=== PATIENT | female | born 1985 | race Caucasian/White ===

== ENCOUNTER 2018-04-30 09:09 | Outpatient (CLI) | payer OTHER, MEDICAID ==
[2018-04-30 10:10] LABS: ADD MAN DIFF? NO
[2018-04-30 10:12] LABS: BASOPHILS % 0.3 % (0.0-2.0); EOSINOPHILS % 0.5 % (0.0-7.0); HEMATOCRIT 34.1 % (37.0-47.0); HEMOGLOBIN 11.2 g/dl (12.0-16.0); LYMPHOCYTES % 17.3 % (15.0-51.0); MEAN CORPUSCULAR HEMOGLOBIN 33.9 pg (29.0-33.0); MEAN CORPUSCULAR HGB CONC 32.8 g/dl (32.0-37.0); MEAN CORPUSCULAR VOLUME 103.3 fl (82.0-101.0); MEAN PLATELET VOLUME 9.4 fl (7.4-10.4); MONOCYTE # 0.4 10^3/ul (0.3-0.9); MONOCYTES % 7.2 % (0.0-11.0); NEUTROPHIL # 4.4 10^3/ul (1.6-7.5); PLATELET COUNT 210 10^3/UL (140-415); RED CELL DISTRIBUTION WIDTH 13.2 % (11.5-14.5)
[2018-04-30 10:51] LABS: ADD UMIC YES; UR ASCORBIC ACID NEGATIVE (NEGATIVE); UR BACTERIA FEW /HPF (NONE SEEN); UR BILIRUBIN (Dip) NEGATIVE (NEGATIVE); UR BLOOD (Dip) NEGATIVE (NEGATIVE); UR CLARITY SLIGHTLY CLOUDY (CLEAR); UR COLOR YELLOW (YELLOW); UR GLUCOSE (Dip) NEGATIVE (NEGATIVE); UR KETONES (Dip) NEGATIVE (NEGATIVE); UR LEUKOCYTE ESTERASE (Dip) 2+ Leu/ul (NEGATIVE); UR NITRITE (Dip) NEGATIVE (NEGATIVE); UR RBC 1 /HPF (0-5); UR SPECIFIC GRAVITY (Dip) 1.008 (1.003-1.030); UR SQUAMOUS EPITHELIAL CELL FEW /HPF (FEW); UR TOTAL PROTEIN (Dip) NEGATIVE (NEGATIVE); UR UROBILINOGEN (Dip) NEGATIVE (NEGATIVE); UR WBC 7 /HPF (0-5)
[2018-04-30 11:22] LABS: ALANINE AMINOTRANSFERASE 16 IU/L (13-69); ALBUMIN 3.3 g/dl (3.3-4.9); ALBUMIN/GLOBULIN RATIO 1.13; ALKALINE PHOSPHATASE 72 IU/L (42-121); ANION GAP 6 (5-13); ASPARTATE AMINO TRANSFERASE 24 IU/L (15-46); BILIRUBIN,INDIRECT 0.3 mg/dl (0-1.1); BILIRUBIN,TOTAL 0.3 mg/dl (0.2-1.3); BLOOD UREA NITROGEN 8 mg/dl (7-20); CALCIUM 8.8 mg/dl (8.4-10.2); CARBON DIOXIDE 24 mmol/L (21-31); CHLORIDE 108 mmol/L (97-110); CREATININE 0.43 mg/dl (0.44-1.00); Estimated GFR > 60 mL/min (>60); GLUCOSE 86 mg/dl (70-220); POTASSIUM 4.1 mmol/L (3.5-5.1); SODIUM 138 mmol/L (135-144); TOTAL PROTEIN 6.2 g/dl (6.1-8.1)
[2018-04-30 11:24] LABS: URIC ACID 3.1 mg/dl (3.1-7.9)
== END 2018-04-30 12:51 | disposition home or self-care (01) ==
LOC: OBT 09:09 → L-D 09:09 → OBT 12:51
DX: O26.892 Other specified pregnancy related conditions, second trimester (principal); Z3A.28 28 weeks gestation of pregnancy; R42 Dizziness and giddiness; H53.8 Other visual disturbances
CPT/HCPCS: 76815; 76818; 80053; 81001; 84560; 85025

== ENCOUNTER 2018-04-30 13:00 | Emergency (ER) | payer SELFPAY, OTHER | END 2018-04-30 20:41 | disposition left against medical advice (07) | LOC: E/R 13:00 | DX: Z53.21 Procedure and treatment not carried out due to patient leaving prior to being seen by health care provider (principal) ==

== ENCOUNTER 2018-06-17 14:15 | Inpatient (IN) | payer OTHER ==
[2018-06-17] MEDS: CEFTRIAXONE 1 GM/50 ML (PMX) 50 ML IVPB (17:52)
[2018-06-17] MEDS: SOD CHLORIDE 0.9% 1,000 ML IV (17:52)
[2018-06-17] MEDS: FERROUS SULFATE (EC) 325 MG TAB PO (21:49)
[2018-06-17] MEDS: PRENATAL VITAMIN PO (21:49)
[2018-06-18] MEDS: FERROUS SULFATE (EC) 325 MG TAB PO ×3 (09:35→21:30)
[2018-06-18] MEDS: SOD CHLORIDE 0.9% 1,000 ML IV (13:13)
[2018-06-18] MEDS: CEFTRIAXONE 1 GM/50 ML (PMX) 50 ML IVPB (18:12)
[2018-06-18] MEDS: PRENATAL VITAMIN PO (21:30)
[2018-06-19] MEDS: SOD CHLORIDE 0.9% 1,000 ML IV (06:11)
[2018-06-19] MEDS: FERROUS SULFATE (EC) 325 MG TAB PO (10:15)
[2018-06-19] MEDS: PRENATAL VITAMIN PO (10:15)
[2018-06-19] MEDS: CEFTRIAXONE 1 GM/50 ML (PMX) 50 ML IVPB (14:47)
== END 2018-06-19 17:30 | disposition home or self-care (01) | DRG 833 ==
LOC: OBT 14:15 → PP1 14:16 → OBT 14:17 → PP1 14:17
DX: O23.03 Infections of kidney in pregnancy, third trimester (principal); Z3A.35 35 weeks gestation of pregnancy
CPT/HCPCS: 76775; 76815; 87086

== ENCOUNTER 2018-07-24 15:59 | Inpatient (IN) | payer OTHER ==
[2018-07-24] MEDS ORDERED: AMPICILLIN 2 GM/NS (PMX) 100 ML IV (16:30)
[2018-07-24] MEDS ORDERED: METHYLERGONOVINE 0.2 MG INJ IM (16:30)
[2018-07-24] MEDS ORDERED: CARBOPROST 250 MCG INJ IM (16:30)
[2018-07-24] MEDS ORDERED: MISOPROSTOL 200 MCG TAB PR (16:30)
[2018-07-24] MEDS ORDERED: OXYTOCIN 30 UNITS/LR 500 ML IV (16:30)
[2018-07-24 16:57] LABS: ADD MAN DIFF? NO
[2018-07-24 17:01] LABS: BASOPHILS % 0.3 % (0.0-2.0); EOSINOPHILS # 0.1 10^3/ul (0.0-0.5); EOSINOPHILS % 0.8 % (0.0-7.0); HEMATOCRIT 37.1 % (37.0-47.0); HEMOGLOBIN 12.5 g/dl (12.0-16.0); LYMPHOCYTES % 17.4 % (15.0-51.0); MEAN CORPUSCULAR HEMOGLOBIN 34.4 pg (29.0-33.0); MEAN CORPUSCULAR HGB CONC 33.7 g/dl (32.0-37.0); MEAN CORPUSCULAR VOLUME 102.2 fl (82.0-101.0); MEAN PLATELET VOLUME 10.3 fl (7.4-10.4); MONOCYTE # 0.5 10^3/ul (0.3-0.9); MONOCYTES % 7.7 % (0.0-11.0); NEUTROPHIL # 4.4 10^3/ul (1.6-7.5); NEUTROPHILS % 73.3 % (39.0-77.0); PLATELET COUNT 236 10^3/UL (140-415); RED BLOOD COUNT 3.63 10^6/ul (4.20-5.40); RED CELL DISTRIBUTION WIDTH 13.3 % (11.5-14.5)
[2018-07-24 17:21] LABS: PARTIAL THROMBOPLASTIN TIME 26.9 Sec (23.0-35.0); PROTIME 11.2 Sec (11.9-14.9); PT RATIO 0.9
[2018-07-24] MEDS: LACTATED RINGER'S 1,000 ML IV ×2 (17:48→22:01)
[2018-07-24] MEDS ORDERED: AMPICILLIN 1 GM/NS (PMX) 50 ML IV (20:30)
[2018-07-25] MEDS: LACTATED RINGER'S 1,000 ML IV ×2 (06:07→13:59)
[2018-07-25] MEDS: OXYTOCIN 30 UNITS/LR 500 ML IV ×3 (13:06→15:48)
[2018-07-25] MEDS ORDERED: BUTORPHANOL 2 MG INJ (14:55)
[2018-07-25] MEDS: BUTORPHANOL 2 MG INJ IV (15:16)
[2018-07-25] MEDS: LIDOCAINE 1% (MPF) 30 ML INJ INJ (15:49)
[2018-07-25] MEDS: LACTATED RINGER'S 1,000 ML IV* (17:43)
[2018-07-25] MEDS ORDERED: CARBOPROST 250 MCG INJ IM (18:00)
[2018-07-25] MEDS ORDERED: MISOPROSTOL 200 MCG TAB PR (18:00)
[2018-07-25] MEDS ORDERED: DIBUCAINE 1% 30 GM OINT TOP (18:00)
[2018-07-25] MEDS ORDERED: ACETAMINOPHEN 325 MG TAB PO (18:00)
[2018-07-25] MEDS ORDERED: METHYLERGONOVINE 0.2 MG INJ IM (18:00)
[2018-07-25] MEDS ORDERED: HYDROCODONE/APAP (5/325) TAB PO (18:00)
[2018-07-25] MEDS ORDERED: OXYTOCIN 30 UNITS/LR 500 ML IV (18:00)
[2018-07-25] MEDS: WITCH HAZEL/GLYCERIN PAD PR (18:25)
[2018-07-25] MEDS: BENZOCAINE 20% 56 ML SPRAY TOP (18:26)
[2018-07-25] MEDS: IBUPROFEN 600 MG TAB PO ×2 (18:27→23:22)
[2018-07-25 21:20] LABS: RAPID PLASMA REAGIN NONREACTIVE (NR)
[2018-07-25] MEDS: SENNA/DOCUSATE NA (8.6MG/50MG) TAB PO (22:29)
[2018-07-26] MEDS: LACTATED RINGER'S 1,000 ML IV* ×2 (01:43→09:43)
[2018-07-26] MEDS: IBUPROFEN 600 MG TAB PO ×4 (06:10→23:02)
[2018-07-26 06:44] LABS: ADD MAN DIFF? NO
[2018-07-26 06:47] LABS: BASOPHILS % 0.1 % (0.0-2.0); EOSINOPHILS # 0.1 10^3/ul (0.0-0.5); HEMATOCRIT 34.6 % (37.0-47.0); HEMOGLOBIN 11.5 g/dl (12.0-16.0); LYMPHOCYTES % 12.6 % (15.0-51.0); MEAN CORPUSCULAR HEMOGLOBIN 33.8 pg (29.0-33.0); MEAN CORPUSCULAR HGB CONC 33.2 g/dl (32.0-37.0); MEAN CORPUSCULAR VOLUME 101.8 fl (82.0-101.0); MEAN PLATELET VOLUME 10.2 fl (7.4-10.4); MONOCYTE # 0.5 10^3/ul (0.3-0.9); MONOCYTES % 6.3 % (0.0-11.0); NEUTROPHIL # 6.6 10^3/ul (1.6-7.5); NEUTROPHILS % 79.5 % (39.0-77.0); PLATELET COUNT 202 10^3/UL (140-415); RED CELL DISTRIBUTION WIDTH 13.3 % (11.5-14.5)
[2018-07-26 06:47] LABS: WHITE BLOOD COUNT 8.3 10^3/ul (4.8-10.8)
[2018-07-26] MEDS: SENNA/DOCUSATE NA (8.6MG/50MG) TAB PO ×2 (09:00→20:10)
[2018-07-26] MEDS: WITCH HAZEL/GLYCERIN PAD PR (20:10)
[2018-07-26] MEDS: BENZOCAINE 20% 56 ML SPRAY TOP (20:10)
[2018-07-27] MEDS: IBUPROFEN 600 MG TAB PO ×2 (05:44→13:37)
[2018-07-27] MEDS: SENNA/DOCUSATE NA (8.6MG/50MG) TAB PO (08:52)
[2018-07-27] MEDS: DIPHTH/TET/ACEL PERTUSS (ADULT) 0.5 ML VIAL IM* (14:33)
== END 2018-07-27 15:05 | disposition home or self-care (01) | DRG 807 ==
LOC: OBT 15:59 → PP1 07-25 17:10 → L-D 16:00 → OBT 16:25 → L-D 16:25
PROVIDERS: Obstetrics & Gynecology
PROC: 10E0XZZ Delivery of Products of Conception, External Approach (ICD-10-PCS; principal; 2018-07-25)
PROC: 0KQM0ZZ Repair Perineum Muscle, Open Approach (ICD-10-PCS; 2018-07-25)
DX: O70.1 Second degree perineal laceration during delivery (principal); Z37.0 Single live birth; O69.81X0 Labor and delivery complicated by cord around neck, without compression, not applicable or unspecified; Z3A.39 39 weeks gestation of pregnancy; Z23 Encounter for immunization
CPT/HCPCS: 76815; 76818; 85025; 85610; 85730; 86592; 86850; 86900; 86901

== ENCOUNTER 2018-11-03 09:36 | Observation (INO) | payer OTHER ==
[2018-11-03] MEDS: ACETAMINOPHEN 500 MG TAB PO (10:43)
[2018-11-03] MEDS: LACTATED RINGER'S 1,000 ML IV ×2 (10:44→20:45)
[2018-11-03] MEDS ORDERED: ROCURONIUM 50 MG INJ (11:00)
[2018-11-03] MEDS: CEFAZOLIN 2 GM/50 ML (PMX) 50 ML IVPB (11:00)
[2018-11-03] MEDS ORDERED: DESFLURANE 15 MIN (11:00)
[2018-11-03] MEDS ORDERED: FENTAnyl 50 MCG/ML VIAL (11:00)
[2018-11-03] MEDS ORDERED: PROPOFOL 40 ML (11:01)
[2018-11-03] MEDS ORDERED: ONDANSETRON 4 MG INJ (11:01)
[2018-11-03] MEDS ORDERED: FAMOTIDINE 20 MG INJ (11:01)
[2018-11-03] MEDS ORDERED: LIDOCAINE 2% (SDV) 5 ML INJ (11:01)
[2018-11-03] MEDS ORDERED: MIDAZOLAM 1 MG/ML 2 ML INJ (11:01)
[2018-11-03] MEDS ORDERED: CEFAZOLIN 1 GM INJ (11:02)
[2018-11-03] MEDS ORDERED: DEXAMETHASONE 4 MG/ML 5 ML INJ (11:26)
[2018-11-03] MEDS ORDERED: hydrALAzine 20 MG INJ IV (11:30)
[2018-11-03] MEDS ORDERED: LEVALBUTEROL (NEB) 0.63 MG/3 ML AMP HHN (11:30)
[2018-11-03] MEDS ORDERED: HYDROmorphONE 1 MG/5 ML IV SYRINGE IV ×2 (11:30)
[2018-11-03] MEDS ORDERED: morphine 2 MG INJ IV ×2 (11:30)
[2018-11-03] MEDS ORDERED: ALBUTEROL 0.083% (NEB) 2.5 MG/3 ML AMP HHN (11:30)
[2018-11-03] MEDS ORDERED: FENTAnyl 50 MCG/ML VIAL IV (11:30)
[2018-11-03] MEDS ORDERED: EPHEDrine 25 MG/5 ML SYG IV (11:30)
[2018-11-03] MEDS ORDERED: ATROPINE 1 MG/10 ML SYRINGE IV (11:30)
[2018-11-03] MEDS ORDERED: OXYCODONE/ACETAMINOPHEN (5/325) TAB PO (11:30)
[2018-11-03] MEDS ORDERED: LABETALOL HCL 20MG INJ IV (11:30)
[2018-11-03] MEDS ORDERED: DIPHENHYDRAMINE 50 MG INJ IV (11:30)
[2018-11-03] MEDS ORDERED: SUGAMMADEX SODIUM 200 MG/2 ML VIAL IV (12:16)
[2018-11-03] MEDS: BUPIVACAINE 0.5%/EPI (SDV) 10 ML INJ (12:26)
[2018-11-03] MEDS ORDERED: ALBUTEROL 0.083% (NEB) 2.5 MG/3 ML AMP ×2 (13:02→13:03)
[2018-11-03] MEDS ORDERED: PROVENTIL HFA 6.7GM INHALER (13:03)
[2018-11-03] MEDS: FENTAnyl 50 MCG/ML VIAL IV (13:37)
[2018-11-03] MEDS: ONDANSETRON 4 MG INJ IV ×3 (13:37→17:33)
[2018-11-03] MEDS: KETOROLAC 15 MG INJ IV (13:52)
[2018-11-03] MEDS ORDERED: ACETAMINOPHEN 500 MG TAB PO ×2 (14:00→19:00)
[2018-11-03] MEDS: HYDROmorphONE 1 MG/5 ML IV SYRINGE IV (14:02)
[2018-11-03] MEDS: ACETAMINOPHEN 1000MG/100ML IV 100 ML IVPB ×2 (14:20→20:46)
[2018-11-03] MEDS: OXYCODONE/ACETAMINOPHEN (5/325) TAB PO (17:59)
[2018-11-03] MEDS ORDERED: ONDANSETRON 4 MG INJ IV (19:00)
[2018-11-03] MEDS: KETOROLAC 30 MG INJ IV ×2 (20:09→23:17)
[2018-11-04] MEDS: ACETAMINOPHEN 1000MG/100ML IV 100 ML IVPB (03:03)
[2018-11-04] MEDS ORDERED: ACETAMINOPHEN 1000MG/100ML IV 100 ML IVPB (09:00)
[2018-11-04] MEDS: KETOROLAC 30 MG INJ IV ×2 (09:15→15:30)
== END 2018-11-04 19:15 | disposition home or self-care (01) ==
LOC: SDS 09:36 → REC 18:53 → MS1 20:26
DX: Z30.2 Encounter for sterilization (principal)
CPT/HCPCS: 58600; 84703; 85025; 86850; 86900; 86901; 88302; 96366; 96375; 96376; 99217